=== PATIENT | male | born 2000 | race Caucasian/White ===

== ENCOUNTER 2021-10-30 11:32 | Emergency (ER) | payer OTHER, SELFPAY ==
--- NOTE | ~2021-10-30 | CT_ITS ---
EXAMINATION: CT HEAD WITHOUT CONTRAST CLINICAL INFORMATION: Headache status post trauma. COMPARISON: None TECHNIQUE: Contiguous axial imaging was performed from the skull base to vertex without intravenous administration of contrast. Coronal and sagittal reformatted images were obtained. This CT examination was performed using dose optimization techniques as appropriate, variously including the following: *Automated exposure control *Adjustment of mA and/or kV according to patient size (this includes techniques or standardized protocols for targeted exams where dose is matched to indication/reason for exam; i.e. extremities or head) *Use of iterative reconstruction technique DLP: 808 mGy-cm FINDINGS: There is no evidence of acute intracranial hemorrhage or territorial infarction. No abnormal mass effect or midline shift is seen. Sanchez to white matter differentiation is well preserved. No extra-axial fluid collections are identified. The ventricles are normal in size. There is no abnormal attenuation within the brain parenchyma. The osseous structures and soft tissues are normal. The mastoid air cells and visualized portions of the paranasal sinuses are well aerated. CT/CT head/brain wo con IMPRESSION: No acute intracranial pathology.
[2021-10-30 11:39] VITALS: BP 135/73; PULSE 100; RESP 18; TEMP 36.8; O2SAT 100; BMI 33.9
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
[2021-10-30] MEDS: Ibuprofen 600 MG TABLET PO (13:17)
== END 2021-10-30 13:26 | disposition home or self-care (01) ==
PROVIDERS: Emergency Provider Student in an Organized Health Care Education/Training Program
DX: S09.90XA Unspecified injury of head, initial encounter (principal); G44.309 Post-traumatic headache, unspecified, not intractable; W20.8XXA Other cause of strike by thrown, projected or falling object, initial encounter; Y93.9 Activity, unspecified; Y92.9 Unspecified place or not applicable; Y99.0 Civilian activity done for income or pay
CPT/HCPCS: 70450; 99283; 99284

== ENCOUNTER 2021-11-02 16:57 | Emergency (ER) | payer OTHER, BC, SELFPAY ==
[2021-11-02 17:08] VITALS: BP 137/79; PULSE 74; RESP 18; TEMP 36.3; O2SAT 99; BMI 32.2
--- NOTE | 2021-11-02 17:45 | ED_ITS ---
HPI - General Adult General Chief complaint: Extremity Injury, Lower Stated complaint: Concussion/Back pain/Leg pain Time Seen by Provider: 11/02/21 17:15 Source: patient Mode of arrival: ambulatory Limitations: no limitations History of Present Illness HPI narrative: Patient is a 20 year old male presenting to the emergency department today with bilateral leg pain. Patient states that he was seen for a concussion last Wednesday but over the weekend, his lower legs began to hurt even though they weren't involved in the initial injury. Patient denies any dizziness, lightheadedness, abdominal pain, nausea, vomiting, fever, chills, blurry vision, double vision, loss of vision, chest pain, difficulty breathing, shortness of breath, back pain, night sweats, pain with urination, increased urinary frequency, increased urinary urgency, blood in [his/her] urine or stool, syncope or a near syncopal episode, recent trauma or falls, bowel incontinence, bladder incontinence, bowel retention, bladder retention, or any other complaints at this time. Onset (ago): day(s) (1) Radiation: non-radiation Severity: mild Severity scale (1-10): 2 Quality: dull Pain Consistency: intermittent and now resolved Relieving factors: none Exacerbating factors: none Associated symptoms: denies other symptoms Treatments prior to arrival: none Related Data Allergies Allergy/AdvReac Type Severity Reaction Status Date / Time No Known Drug Allergies Allergy Unknown Unknown Verified 10/30/21 13:16 Review of Systems Constitutional: Constitutional: Reports no additional constitutional complaints, Denies chills, Denies fever(s) and Denies night sweats Eyes: Eyes: Reports no additional eye complaints, Denies blurry vision, Denies change in vision, Denies diplopia, Denies eye discharge, Denies loss of vision and Denies eye pain ENT: Denies dizziness Cardiovascular: Cardiovascular: Reports no additional cardiovascular complaints, Denies chest pain, Denies lightheadedness, Denies Loss of Consciousness and Denies dyspnea Respiratory: Respiratory: Reports no additional respiratory complaints and Denies dyspnea Gastrointestinal: Gastrointestinal: Reports no additional gastrointestinal complaints, Denies abdominal pain, Denies melena, Denies hematochezia, Denies change in bowel habits and Denies change in stool character Genitourinary: Genitourinary: Reports no additional male genitourinary complaints, Denies hematuria, Denies oliguria, Denies difficulty urinating, Denies dysuria, Denies urinary frequency, Denies urinary hesitancy, Denies urinary incontinence and Denies urinary urgency Musculoskeletal: Musculoskeletal: Reports no additional musculoskeletal complaints, Denies numbness and Denies tingling Comments: bilateral lower leg pain Neurologic: Denies dizziness, Denies loss of vision, Denies numbness and Denies tingling Psychiatric: Psychiatric: Reports no additional psychiatric complaints Endocrine: Endocrine: Reports no additional endocrine complaints Hematologic/Lymphatic: Hematologic/Lymphatic: Reports no additional hematologic/lymphatic complaints Allergic/Immunologic: Allergic/Immunologic: Reports no additional allergic/immunologic complaints [facility] Past Medical History Attestation statement: The following information was validated with the patient. Source: old records reviewed Social History Social History Advance Directives: No Advance Directives Information Provided: No Physical Exam ED Vital Signs: Vital Signs - 24 hr 11/02/21 17:08 Temperature 97.3 F Pulse Rate 74 Respiratory Rate 18 Blood Pressure 137/79 Pulse Oximetry 99 Oxygen Delivery Method Room Air BMI result Body Mass Index 32.2 Const General: cooperative, no acute distress, alert and awake Nutritional Appearance: well nourished Orientation/consciousness: patient oriented x3 Limitations: no limitations HENMT Head: Yes normal to inspection and Yes atraumatic Ears: hearing grossly normal bilaterally and external ears normal General nose exam: Normal external nose present, no nasal discharge noted and no epistaxis Face and sinus: Yes normal facial exam, No abrasion and No laceration Mouth: Normal oral and palatal mucosa present, no drooling and no muffled voice Eyes General: appearance normal, both eyes and all related structures Periorbital: periorbital findings normal Eyelids: Yes eyelids normal Conjunctivae: conjunctivae normal Pupils: Equal, round and reactive pupils present EOM: EOMs intact bilaterally Neck Neck: Yes normal visual inspection, Yes full ROM and Yes no lymphadenopathy Chest Chest palpation & inspection: normal inspection of the chest Resp Effort & Inspection: normal respiratory effort and able to speak in complete sentences Auscultation: clear to auscultation bilaterally Cardio Rate: regular rate Rhythm: regular rhythm GI Inspection: Yes normal to inspection Neuro General: patient oriented x3 and moves all extremities Cranial nerves: Yes Equal, round and reactive pupils present Cognition (Neuro): normal cognition Motor exam (neuro): 5/5 motor strength present throughout Sensory Exam: Normal double simultaneous stimulation for sensation Coordination: [id number] test normal Extrem General: Yes normal to inspection, Yes full ROM and Yes capillary refill normal Psych Appearance: grossly normal Mental Status: mental status grossly normal Affect: normal affect Attitude: cooperative Thought process: Normal thought process present Thought content: Normal thought content present Insight: Good insight present (Psych) Medical Decision Making MDM Narrative Medical decision making narrative: Patient is a 20 year old male presenting to the emergency department today with bilateral lower leg pain. Patient's physical exam was unremarkable. I explained my physical exam findings to the patient and the patient's mother. I answered all questions asked by the patient and the patient's mother. I stressed the importance of the patient taking his medication as prescribed. I stressed the importance of the patient following up with his primary care provider. I stressed the importance of the patient returning to the emergency department immediately if his symptoms were to worsen or if he were to develop any dizziness, shortness of breath, difficulty breathing, chest pain, blurry vision, loss of vision, nausea, vomiting, abdominal pain, fever, chills, back pain, or any other complaints. Patient and the patient's mother verbalized agreement and understanding with this treatment plan and discharge. Differential Diagnosis Differential Diagnosis: bilateral leg pain Medical Records Medical records reviewed: Yes I reviewed the patient's medical records. Discharge Plan Discharge Clinical Impression: Bilateral leg cramps Patient Disposition: Home, Self-Care Additional Instructions: Follow up with your primary care provider. Return to the emergency department immediately if your symptoms worsen or if you develop any dizziness, shortness of breath, difficulty breathing, chest pain, blurry vision, loss of vision, na usea, vomiting, abdominal pain, fever, chills, back pain, or any other complaints. Referrals: [facility] Family Medicine [Provider Group] (Call to establish and follow up with a [facility] care provider. If you already have one, please follow up with them. ) [facility] [Provider Group] (Call to establish and follow up with a primary care provider. If you already have one, please follow up with them. ) [facility] [Provider Group] (Call to establish and follow up with a primary care provider. If you already have one, please follow up with them. ) [facility] [Provider Group] (Follow up with [facility] as scheduled for your other, unrelated, work injury. ) Stand Alone Forms: Work/School Release Interventions: ED Discharge Assessment Last Done: 11/02/21 18:46 Discharge Date/Time: 11/02/21 18:47 Print Language: Guamanian
== END 2021-11-02 18:47 | disposition home or self-care (01) ==
PROVIDERS: Emergency Provider Emergency Medicine
DX: R25.2 Cramp and spasm (principal)
CPT/HCPCS: 99283

== ENCOUNTER → 2021-11-03 08:38 | Outpatient (BNVA) | payer OTHER, SELFPAY | PROVIDERS: Visit Provider Physician Assistant Medical | DX: S06.0X0A Concussion without loss of consciousness, initial encounter (principal); W22.8XXA Striking against or struck by other objects, initial encounter | CPT/HCPCS: 99203 ==

== ENCOUNTER 2021-11-03 10:06 | Outpatient (REF) | payer OTHER, BC, SELFPAY ==
[2021-11-03 10:33] LABS: COVID-19 Test Positive (Negative)
== END 2021-11-03 10:07 | disposition home or self-care (01) ==
LOC: HO.LAB 10:06
PROVIDERS: Visit Provider Internal Medicine
DX: Z20.822 Contact with and (suspected) exposure to COVID-19 (principal)
CPT/HCPCS: 87635; C9803

== ENCOUNTER → 2021-11-13 10:43 | Outpatient (BNVA) | payer OTHER, SELFPAY | PROVIDERS: Visit Provider Internal Medicine | DX: S06.0X0D Concussion without loss of consciousness, subsequent encounter (principal); W22.8XXD Striking against or struck by other objects, subsequent encounter; Z86.16 Personal history of COVID-19 | CPT/HCPCS: 99213 ==

== ENCOUNTER → 2021-11-20 07:45 | Outpatient (BNVA) | payer OTHER, SELFPAY | PROVIDERS: Visit Provider Internal Medicine | DX: S06.0X0D Concussion without loss of consciousness, subsequent encounter (principal); W22.8XXD Striking against or struck by other objects, subsequent encounter; Z02.79 Encounter for issue of other medical certificate | CPT/HCPCS: 99213 ==

== ENCOUNTER → 2023-11-08 08:58 | Outpatient (BNVA) | payer SELFPAY | PROVIDERS: Visit Provider Physician Assistant Medical | DX: Z02.79 Encounter for issue of other medical certificate (principal) ==

== ENCOUNTER 2024-11-09 14:53 | Outpatient (AMB) | payer OTHER, SELFPAY ==
--- OUTSIDE RECORDS SUMMARY | 2024-11-09 14:56 | XMS_ITS | Encounter Summary ---
Author Organization [facility] Address [address] [place] [address] Phone Care Team Providers Care [employer] Worker Name Role Phone Cj Martinez MD Primary Care Provider [phone] Encounter Details Date Type Department Care Team (Late st Contact Info) Description 09/26/2017 [facility]counter [facility] [address] [address] Social History Tobacco Use Types Packs/Day Years Used Date Smoking Tobacco: Never Assessed Sex and Gender Information Value Date Recorded Sex Assigned at Not on file Legal Sex Male 6:09 PM EDT Gender Identity Not on file Sexual Orientation Not on file documented as of this encounter Plan of Treatment Not on file documented as of this encounter Visit Diagnoses Not on filedocumented in this encounter Care Teams [employer] Work[employer] Relationship Specialty Start Date End Date Cj Martinez MD [address] [place] [address] PCP - General Pediatrics 08/29/18 02/15/24 documented as of this encounter
--- NOTE | 2024-11-09 14:59 | A.OFFPC_ITS ---
Vital Signs 11/09/24 15:04 Height 6 ft 3 in Weight 268 lb 6 oz BMI 33.5 BP 110/74 Blood Pressure Location Rt brachial Position Sitting Respiration 16 Pulse 80 Pulse Source Pulse Oximeter Temp 98.2 F Temp Source Oral Pulse Oximetry (%) 96 Oxygen Delivery Method Room Air Intake Visit Reasons: Back pain Intake Note: Lower back pain goes down the leg. Shoulder pain. Insurance Law Specialist Required: No Allergies No Known Drug Allergies Allergy (Unknown, Verified 11/09/24 15:03) Unknown Medication List - Last Reconciled 11/09/24 by Chelsy Espitia PA-C levocetirizine (Xyzal) 5 mg PO QPM Tobacco use date assessed: 11/09/24 Dental Screening Dental Screen Date: 11/09/24 Did you have a dental visit in the last 12 months?: Yes Did you have a dental problem in the last 6 months where you did not have access to dental care?: No Was dental information given to patient?: Patient has dentist HPI Back pain HPI Details Patient is a 23-year-old male who presents today with complaints of low back pain. It is intermittently radiating down both legs. It seem to exacerbate about 2 months ago when he slipped in the mud. He had a twisting injury in the pain started a couple days later. He felt better after a few weeks but then last month the pain returned. It has been 4 weeks of constant discomfort of the low back and radiating down his legs. Feels better when he is lying flat. Pain is exacerbated with standing and walking a lot. No bowel or bladder dysfunction. No numbness, tingling or weakness. He is getting sharp shooting pains. 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 1. Little interest or pleasure in doing things: not at all 2. Feeling down, depressed, or hopeless: not at all 3. Trouble falling or staying asleep, or sleeping too much: not at all 4. Feeling tired or having little energy: not at all 5. Poor appetite or overeating: not at all 6. Feeling bad about yourself - or that you are a failure or have let yourself or your family down: not at all 7. Trouble concentrating on things, such as reading the newspaper or watching television: not at all 8. Moving or speaking so slowly that other people could have noticed. Or the opposite - being so fidgety or restless that you have been moving around a lot more than usual: not at all 9. Thoughts that you would be better off or of hurting yourself in some way: not at all Total score: 0 Depression Screening Interpretation: Negative Depression Screening Done: Yes 10171 - PHQ-9 Billing: Yes Source: Developed by Drs. Cj Freitas, Deana Dawson, Jayce Burr and colleagues, with an educational art from [employer]. Thrive Questionnaire Date Thrive assessed: 11/06/24 I am a: Patient What is your living situation today?: I have a steady place to live Within the past 12 months, did the food you bought not last and you didn't have the money to get more?: Never true Within the past 12 months, did you worry whether your food would run out before you got money to buy more?: Never true Do you have trouble paying for medicines?: No Do you have trouble getting transportation to medical appointments?: No Do you have trouble paying your heating and electricity bill?: No Do you have trouble taking care of your child, family member or friend?: No Do you have trouble with day-to-day activities such as bathing, preparing meals, shopping, managing finances, etc.?: No Are you currently unemployed and looking for a job?: No Are you interested in more education?: No Please select the resources that you would like help with: None Currently or been in a relationship where the following occur: No concerns reported THRIVE Score: 0 AUDIT C Alcohol Use Questionnaire (AUDIT-C) 1. How often do you have a drink containing alcohol?: Never 3. How often do you have six or more drinks on one occasion?: Never Total Score: 0 JONE-7 AMB Questionnaire JONE-7 Date JONE - 7 assessed: 11/09/24 Feeling nervous, anxious, or on edge: 0 = Not at all Not being able to stop or control worryin = Not at all Worrying too much about different things: 0 = Not at all Trouble relaxin = Not at all Being so restless that it is hard to sit still: 0 = Not at all Becoming easily annoyed or irritable: 0 = Not at all Feeling afraid as if something awful might happen: 0 = Not at all Total JONE-7 score (0-4 normal; 5-9 mild; 10-14 moderate; 15-21 severe): 0 Source: Developed by Drs. Cj Freitas, Deana Dawson, Jayce Burr and colleagues, with an educational art from [employer]. JONE-7 Assessment Billing JONE-7 Assessment Tool: JONE-7 Assessment 96968 Physical exam (Primary Care) Vital Signs: Last Vital Signs Temp 98.2 F 11/09/24 15:04 Pulse 80 11/09/24 15:04 Resp 16 11/09/24 15:04 BP 110/74 11/09/24 15:04 Pulse Ox 96 11/09/24 15:04 Oxygen Delivery Method Room Air 11/09/24 15:04 BMI result Body Mass Index 33.5 Tobacco/Smoking Status: Tobacco use Status Tobacco use date assessed 11/09/24 11/09/24 15:09 Patient Tobacco Use Status Never used Tobacco 11/09/24 15:12 e-Cigarette/Vaping Use Never Used 11/09/24 15:12 PHQ-9: PHQ-9 Score PHQ-9: Total score 0 11/09/24 15:15 Depression Screening Interpretation: Negative Thrive Assessment: Date of Thrive Assessment Date Thrive assessed 11/06/24 11/09/24 15:01 Currently or been in a relationship where the following occur: No concerns reported Const Orientation/consciousness: patient oriented x3 HENMT Ears: hearing grossly normal bilaterally Neck Thyroid: Thyroid normal Lymphatic: no lymphadenopathy noted Resp Auscultation: clear to auscultation bilaterally Cardio Rate: regular rate Rhythm: regular rhythm Heart sounds: S1 normal heart sound present and S2 normal heart sound present GI Inspection: Yes normal to inspection Palpation (GI): Soft to palpation and Other GI palpation findings present (nontender, no cva tenderness) Auscultation: normoactive bowel sounds Rectal Exam - Male: Yes deferred Back/Spine/Pelvis Other: No CVA tenderness. No spinal process tenderness. There is some mild discomfort of the palpation of the lumbar paraspinous muscles. Straight leg raise positive bilaterally. DTRs intact. Sensation intact. Skin General skin exam: no rashes or lesions noted Neuro General: patient oriented x3, gait normal and no focal motor deficits Coding Level of Care Code Est Pt Level 4 (94058) Complex EM visit Add On G2211 Diagnoses Lumbar pain with radiation down both legs M54.50; M79.604; M79.605 Additional Codes JONE-7 Assessment Billing - JONE-7 Assessment Tool: JONE-7 Assessment 80289 ([id number]) PHQ-9 - 49088 - PHQ-9 Billing: Yes ([id number]) Assessment & Plan Assessment & Plan (1) Lumbar pain with radiation down both legs: Code(s): M54.50 - Low back pain, unspecified; M79.604 - Pain in right leg; M79.605 - Pain in left leg Category: Medical Plan: X-ray ordered. Referral to PT. Prednisone taper ordered. Discussed risks and benefits and adverse effects of this medication. Advised that this may cause insomnia or agitation. He will let me know if anything worsens or changes. Patient understands and agrees with the plan. Orders: Orders XR lumbar spine 2-3V Today M54.50 - Low back pain, unspecified PT Evaluation and Treatment Today M54.50 - Low back pain, unspecified, M79.604 - Pain in right leg, M79.605 - Pain in left leg Medications: New prednisone take 3 tab po x 3 days, take 2 tab po x 3 days, 1 tab po x 3 days 18 tabs 0RF Refilled levocetirizine (Xyzal) 5 mg PO QPM 90 tabs 3RF Discontinued ibuprofen Discontinued Reason: Patient no longer taking 600 mg PO Q6H PRN 30 tabs 0RF fever or pain
[2024-11-09 15:04] VITALS: BP 110/74; PULSE 80; RESP 16; TEMP 36.8; O2SAT 96; BMI 33.5
== END 2024-11-09 15:33 | disposition home or self-care (01) ==
LOC: HO.HMCFM 14:53
PROVIDERS: PCP Physician Assistant; Visit Provider Physician Assistant
DX: M54.50 Low back pain, unspecified (principal); M79.604 Pain in right leg; M79.605 Pain in left leg

== ENCOUNTER → 2024-11-09 14:53 | Outpatient (BNVA) | payer OTHER, SELFPAY | PROVIDERS: PCP Physician Assistant; Visit Provider Physician Assistant | DX: M54.50 Low back pain, unspecified (principal); M79.605 Pain in left leg; M79.604 Pain in right leg | CPT/HCPCS: 96127 ==

== ENCOUNTER 2024-11-15 14:11 | Outpatient (REF) | payer OTHER, SELFPAY ==
--- NOTE | ~2024-11-15 | XR_ITS ---
EXAMINATION: XR LUMBOSACRAL SPINE CLINICAL INFORMATION: M54.50 - Low back pain, unspecified COMPARISON: None available. 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 No acute cortical disruption or gross malalignment. No lytic or blastic lesions. XR/XR lumbar spine 2-3V IMPRESSION: Sacralized vertebra labeled S1. No acute fracture or listhesis. Electronically signed by: Maxim Soriano MD 11/15/2024 02:42 PM EDT
--- OUTSIDE RECORDS SUMMARY | 2024-11-15 14:54 | XMS_ITS | Encounter Summary ---
Author Organization [facility] Address [address] [place] [address] Phone Care Team Providers Care [employer] Name Role Phone Cj Martinez MD Primary Care Provider [phone] Encounter Details Date Type Department Care Team (Late st Contact Info) Description 09/26/2017 [facility]counter [facility] [address] [address] Social History Tobacco Use Types Packs/Day Years [...] on filedocumented in this encounter Care Teams [employer] Relationship Specialty Start Date End Date Cj Martinez MD [address] [place] [address] PCP - General Pediatrics 08/29/18 02/15/24 documented as of this encounter
== END 2024-11-15 14:12 | disposition home or self-care (01) ==
LOC: HO.XRAY 14:11
PROVIDERS: PCP Physician Assistant; Visit Provider Physician Assistant
DX: M54.50 Low back pain, unspecified (principal)
CPT/HCPCS: 72100

== ENCOUNTER → 2024-11-15 14:20 | Outpatient (BNV) | payer OTHER, SELFPAY | PROVIDERS: PCP Physician Assistant; Visit Provider Radiology Diagnostic Radiology | DX: M54.50 Low back pain, unspecified (principal) | CPT/HCPCS: 72100 ==

== ENCOUNTER 2024-12-27 13:00 | Outpatient (RCR) | payer OTHER, SELFPAY | END 2025-04-04 13:54 | disposition home or self-care (01) | LOC: HO.PT 13:00 | PROVIDERS: PCP Physician Assistant; Visit Provider Physician Assistant | DX: M54.50 Low back pain, unspecified (principal); M79.604 Pain in right leg; M79.605 Pain in left leg ==

== ENCOUNTER 2025-02-13 14:00 | Outpatient (RCR) | payer OTHER, SELFPAY ==
--- NOTE | 2025-01-10 14:37 | MHC.PT.EP ---
[facility] [place] [facility] [place] [facility] [place] [facility] [address] Taras Dan [address] [phone] F: [phone] F: [phone] F: [phone] F: [phone] Physical Therapy Plan of Care Date of Evaluation: 01/09/25 Date of Surgery: n/a Diagnosis: Low back pain, unspecified Pain in right leg Pain in left leg Lumbar pain with radiation down both legs Assessment: Pt is a pleasant and motivated 24yo M who presents to PT with low back pain with intermittent LE radicular symptoms. He reports pain started around Easter when he slipped, had a twisting motion, and caught himself on his R side. He presents to PT with current impairments in pain, decreased ROM, decreased core stabilization, decreased muscle length, soft tissue restrictions, impaired body mechanics, and impaired gait. He is limited functionally by prolonged sitting and bending. He is an excellent candidate for skilled PT in order to address current impairments to facilitate return to PLOF. 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 Manual therapy to restore motion and function. Therapeutic exercise to improve strength and flexibility. Neuromuscular re-education for posture and balance. Therapeutic activities to return to functional activities of daily living. Electronically signed by: Hillary Mojica, PT, DPT Please sign and return to therapist. Thank you for your referral.
--- NOTE | 2025-02-13 15:21 | MHC.PT.DC ---
[facility] [place] Office [place] Office [place] [facility] [address] Taras Dan [address] [phone] F: [phone] F: [phone] F: [phone] F: [phone] Physical Therapy Discharge Report Diagnosis: Low back pain, unspecified Pain in right leg Pain in left leg Lumbar pain with radiation down both legs Date of Surgery: n/a Date of Evaluation: 01/09/25 Date of Discharge: 02/13/25 Treatments to Date: 6 Cancellations to Date: No Shows to Date: Discharge Status: Improved Function Independent with HEP Discharge Summary: Pt has made excellent progress since SOC. His pain has decreased and his symptoms have centralized. He has met his STGs and made good progress toward his LTGs. He has demonstrated improvements in ROM and flexibility noted throughout exercise. He has improved his score on LEFI outcome measure from 46/80 on initial PT evaluation to 67/80 today. He is independent with HEP. I provided him with printed, updated copy of HEP and theraband. He is being D/C to HEP at this time. I reviewed the importance of continuing HEP and importance of proper body mechanics. Pt reports no further questions or concerns for PT at this time Electronically signed by: Hillary Su, PT, DPT Please sign and return to therapist. Thank you for your referral.
== END 2025-02-13 15:22 | disposition home or self-care (01) ==
LOC: HO.PT 14:00
PROVIDERS: PCP Physician Assistant; Visit Provider Physician Assistant
DX: M54.50 Low back pain, unspecified (principal); M79.604 Pain in right leg; M79.605 Pain in left leg
CPT/HCPCS: 97110; 97112; 97140; 97161